=== PATIENT | male | born 1950 | race Caucasian/White ===

== ENCOUNTER 2019-10-16 08:38 | Emergency (ER) | payer OTHER, MEDICARE ==
[2019-10-16] MEDS ORDERED: MORPHINE 4 MG/ML SYR ONE ×2 (09:12→11:09)
[2019-10-16] MEDS ORDERED: ONDANSETRON 4 MG/2 ML VIAL ONE ×2 (09:12→11:14)
[2019-10-16 09:30] LABS: Absolute Lymphocytes (CBC) 1.4 K/uL (0.7-4.9); Basophils % 0.6 % (0-1.3); Hematocrit 38.4 % (39.6-49.0); Lymphocytes % 16.9 % (15.3-44.8); MPV 7.8 fL (7.6-11.3); RBC Red Blood Cell Count 4.23 M/uL (4.33-5.43)
--- NOTE | 2019-10-16 10:22 | RAD REPORT ---
EXAM DESCRIPTION: US - Scrotum Testicles - 10/16/2019 9:27 am CLINICAL HISTORY: Testicular pain COMPARISON: None FINDINGS: Right testicle measures 4.2 x 2.7 x 2.9 centimeters. Echotexture is homogeneous. Normal bl ood flow Left testicle measures 4.6 x 2.6 x 2.4 centimeters. Echotexture is homogeneous. Normal blood flow The epididymides are normal in size and echotexture. Normal blood flow is seen. 5 millimeter right sp ermatocele Small bilateral hydroceles IMPRESSION: Small bilateral hydroceles 5 millimeter right spermatocele
--- NOTE | 2019-10-16 10:25 | RAD REPORT ---
EXAM DESCRIPTION: CT - Stone Protocol - 10/16/2019 9:58 am CLINICAL HISTORY: Flank pain. Right groin, RLQ pain COMPARISON: No comparisons TECHNIQUE: Axial images were obtained without oral or IV contrast. Lack of contrast limits solid org an and vascular assessment. The [id number] spans the entirety of the system partially obscuring uppermost abdomen and lung bases. Coronal reformatted images were obtained and reviewed. All CT scans are performed using dose optimization technique as appropriate and may include automated exposure control or mA/KV adjustment according to patient size. FINDINGS: The lower lung alfred are clear. Imaged portions of the liver and spleen show no suspicious findings on non-contrast imaging. The panc reas and adrenal glands are normal. No pathologic lymphadenopathy in the abdomen or pelvis. 9 mm stone is present in the inferior calyx of the right kidney. Punctate calculus also suspected in the inferior calyx left kidney. No hydronephrosis. No bowel obstruction, free air, free fluid or abscess. Normal appendix noted.Mild sigmoid diverticulo sis coli. A large infrarenal abdominal aortic aneurysm is present measuring 10 cm in transverse dimension and 1 2 cm in length. 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 No significant bony abnormality. IMPRESSION: Large infrarenal abdominal aortic aneurysm measuring 10 cm. 9 mm inferior right renal stone without hydronephrosis.
--- NOTE | 2019-10-16 11:07 | EDPHYS ---
Physician Documentation [facility] Name: Cody Glover Jr Age: 68 yrs Sex: Male : 1950 Arrival Date: 10/16/2019 Time: 08:42 Bed 7 Private MD: Jorge Luis Galicia ED Physician King Zamudio HPI: 10/16 09:04 This 68 yrs old Male presents to ER via Ambulatory with complaints of Groin kdr Pain, Testicular Pain. 09:04 The patient presents with scrotal pain, of the right side, without swelling, without kdr erythema. Onset: The symptoms/episode began/occurred The patient began to have pain on Tuesday night and has been intermittent since. It was particularly bad on Tuesday night and then better on Tuesday. Then worse again on Tuesday night. He currently describes the pain at about an "8.". Modifying factors: The symptoms are alleviated by nothing, the symptoms are aggravated by movement. Associated signs and symptoms: Pertinent positives: abdominal pain, nausea, Pertinent negatives: constipation, diarrhea, dysuria, vomiting. Severity of symptoms: At their worst the symptoms were incapacitating, yesterday, in the emergency department the symptoms have improved, mildly. The patient has not experienced similar symptoms in the past. The patient has been recently seen by a physician: the patient's primary care provider, Was recently diagnosed with the flu and was given abx and Tamiflu. Historical: - Allergies: 08:54 No Known Allergies; iw - Home Meds: 08:54 telmisartan-hydrochlorothiazid 50-12.5 mg oral tab once daily [Active]; simvastatin 5 iw mg Oral tab 1 tab once daily [Active]; - PMHx: 08:54 Hypertension; Hyperlipidemia; iw - PSHx: 08:54 None; iw - Immunization history:: Adult Immunizations up to date. - Social history:: Smoking status: Patient uses tobacco products. - Ebola Screening: : Patient negative for fever greater than or equal to 101.5 degrees Fahrenheit, and additional compatible Ebola Virus Disease symptoms Patient denies exposure to infectious person Patient denies travel to an Ebola-affected area in the 21 days before illness onset No symptoms or risks identified at this time. ROS: 09:04 Constitutional: Negative for fever, chills, and weight loss, Eyes: Negative for injury, kdr pain, redness, and discharge, ENT: Negative for injury, pain, and discharge, Neck: Negative for injury, pain, and swelling, Cardiovascular: Negative for chest pain, palpitations, and edema, Respiratory: Negative for shortness of breath, cough, wheezing, and pleuritic chest pain, Back: Negative for injury and pain, MS/Extremity: Negative for injury and deformity, Skin: Negative for injury, rash, and discoloration, Neuro: Negative for headache, weakness, numbness, tingling, and seizure activity. Psych: Negative for depression, anxiety, suicide ideation, homicidal ideation, and hallucinations, Allergy/Immunology: Negative for hives, rash, and allergies, Endocrine: Negative for neck swelling, polydipsia, polyuria, polyphagia, and marked weight changes, Hematologic/Lymphatic: Negative for swollen nodes, abnormal bleeding, and unusual bruising. 09:04 Abdomen/GI: Positive for abdominal pain, nausea, of the right lower quadrant, Negative for vomiting, diarrhea, constipation, abdominal distension, anorexia, dysphagia, hematemesis, black/tarry stool, rectal pain, rectal bleeding. Exam: 09:04 Constitutional: This is a well developed, well nourished patient who is awake, alert, kdr and in no acute distress. Head/Face: Normocephalic, atraumatic. Eyes: Pupils equal round and reactive to light, extra-ocular motions intact. Lids and lashes normal. Conjunctiva and sclera are non-icteric and not injected. Cornea within normal limits. Periorbital areas with no swelling, redness, or edema. Neck: Trachea midline, no thyromegaly or masses palpated, and no cervical lymphadenopathy. Supple, full range of motion without nuchal rigidity, or vertebral point tenderness. No Meningismus. Chest/axilla: Normal chest wall appearance and motion. Nontender with no deformity. No lesions are appreciated. Cardiovascular: Regular rate and rhythm with a normal S1 and S2. No gallops, murmurs, or rubs. Normal PMI, no JVD. No pulse deficits. Respiratory: Lungs have equal breath sounds bilaterally, clear to auscultation and percussion. No rales, rhonchi or wheezes noted. No increased work of breathing, no retractions or nasal flaring. Back: No spinal tenderness. No costovertebral tenderness. Full range of motion. Skin: Warm, dry with normal turgor. Normal color with no rashes, no lesions, and no evidence of cellulitis. MS/ Extremity: Pulses equal, no cyanosis. Neurovascular intact. Full, normal range of motion. Neuro: Awake and alert, GCS 15, oriented to person, place, time, and situation. Cranial nerves II-XII grossly intact. Motor strength 5/5 in all extremities. Sensory grossly intact. Cerebellar exam normal. Normal gait. Psych: Awake, alert, with orientation to person, place and time. Behavior, mood, and affect are within normal limits. 09:04 Abdomen/GI: Inspection: abdomen appears normal, obese Bowel sounds: active, diminished, in all quadrants, Palpation: soft, mild abdominal tenderness, in the right upper quadrant and right lower quadrant, mass, is not appreciated, rebound tenderness, is not appreciated, voluntary guarding, is not appreciated, involuntary guarding, is not appreciated. Vital Signs: 08:55 BP 128 / 92; Pulse 90; Resp 16; Temp 98.0; Pulse Ox 98% on R/A; Pain 8/10; iw 10:00 BP 132 / 94; Pulse 89; Resp 15; Pulse Ox 99% on R/A; hb 11:00 BP 131 / 96; Pulse 85; Resp 14; Pulse Ox 99% on R/A; Pain 8/10; hb 12:01 BP 131 / 92; Pulse 85; Resp 18; Pulse Ox 97% on R/A; mg2 12:08 Weight 88.9 kg; Height 5 ft. 7 in. (170.18 cm); hb 12:28 BP 132 / 87; Pulse 84; Resp 16; Pulse Ox 99% on R/A; Pain 4/10; hb 12:08 Body Mass Index 30.70 (88.90 kg, 170.18 cm) hb MDM: 09:04 Data reviewed: vital signs, nurses notes, lab test result(s), radiologic studies. kdr Counseling: I had a detailed discussion with the patient and/or guardian regarding: the historical points, exam findings, and any diagnostic results supporting the discharge/admit diagnosis, lab results, radiology results. 11:04 Patient medically screened. kdr 11:54 ED course: Still awaiting acceptance from [facility] - if no movement in the next few kdr minutes's, will attempt elsewhere. 10/16 09:04 Order name: CBC with Diff; Complete Time: 09:54 kdr 10/16 09:04 Order name: Chem 7; Complete Time: 09:54 kdr 10/16 09:04 Order name: Scrotum Testicles US; Complete Time: 10:55 kdr 10/16 09:04 Order name: CT Stone Protocol; Complete Time: 10:55 kdr 10/16 12:19 Order name: Urine Dipstick--Ancillary (enter results) bd 10/16 09:04 Order name: Urine Dipstick-Ancillary (obtain specimen); Complete Time: 10:39 kdr Administered Medications: 09:13 Drug: morphine 4 mg Route: IVP; Site: right antecubital; mg2 10:00 Follow up: Response: No adverse reaction hb 09:13 Drug: Zofran 4 mg Route: IVP; Site: right antecubital; mg2 10:00 Follow up: Response: No adverse reaction hb 11:09 Drug: morphine 4 mg Route: IVP; Site: right antecubital; hb 11:28 Follow up: Response: No adverse reaction; Pain is decreased hb Disposition: 10/16/19 11:04 Transfer ordered to [facility]. Diagnosis is Aortic aneurysm of unspecified site, without rupture - 10 cm. - Reason for transfer: Higher level of care. - Accepting physician is [facility]. - Condition is Serious. - Problem is new. - Symptoms have improved. Signatures: Dispatcher [employer] EDMS King Zamudio MD MD [facility] Wen Small RN RN Farhana Field RN RN Lucio Vela RN RN mg2 Corrections: (The following items were deleted from the chart) 12:39 11:04 10/16/2019 11:04 Transfer ordered to [facility]. Diagnosis is hb Aortic aneurysm of unspecified site, without rupture - 10 cm. Reason for transfer: Higher level of care. Accepting physician is [facility]. Condition is Serious. Problem is new. Symptoms have improved. kdr
--- NOTE | 2019-10-16 12:41 | ER ---
Nurse's Notes [facility] Name: Cody Glover Jr Age: 68 yrs Sex: Male : 1950 Arrival Date: 10/16/2019 Time: 08:42 Bed 7 Private MD: Jorge Luis Galicia Diagnosis: Aortic aneurysm of unspecified site, without rupture-10 cm Presentation: 10/16 08:52 Presenting complaint: Patient states: was doing yard work on Tuesday, felt pain in right iw groin/testicle, pain got better Tuesday then pain came back , also has RLQ pain and feels nauseous. Transition of care: patient was not received from another setting of care. Onset of symptoms was October 14, 2019. Risk Assessment: Do you want to hurt yourself or someone else? Patient reports no desire to harm self or others. Initial Sepsis Screen: Does the patient meet any 2 criteria? No. Patient's initial sepsis screen is negative. Does the patient have a suspected source of infection? No. Patient's initial sepsis screen is negative. Care prior to arrival: None. 08:52 Method Of Arrival: Ambulatory iw 08:52 Acuity: GENIE 3 iw 11:10 Acuity: GENIE 2 iw Historical: - Allergies: 08:54 No Known Allergies; iw - Home Meds: 08:54 telmisartan-hydrochlorothiazid 50-12.5 mg oral tab once daily [Active]; simvastatin 5 iw mg Oral tab 1 tab once daily [Active]; - PMHx: 08:54 Hypertension; Hyperlipidemia; iw - PSHx: 08:54 None; iw - Immunization history:: Adult Immunizations up to date. - Social history:: Smoking status: Patient uses tobacco products. - Ebola Screening: : Patient negative for fever greater than or equal to 101.5 degrees Fahrenheit, and additional compatible Ebola Virus Disease symptoms Patient denies exposure to infectious person Patient denies travel to an Ebola-affected area in the 21 days before illness onset No symptoms or risks identified at this time. Screenin:15 Abuse screen: Denies threats or abuse. Denies injuries from another. Nutritional mg2 screening: No deficits noted. Tuberculosis screening: No symptoms or risk factors identified. Fall Risk IV access (20 points). Assessment: 07:08 Reassessment: US at bedside. hb 09:14 General: Appears in no apparent distress. comfortable, Behavior is calm, cooperative. mg2 Pain: Complains of pain in testicle Pain does not radiate. Pain currently is 8 out of 10 on a pain scale. Quality of pain is described as aching, Pain began gradually, 2-3 days ago. Is intermittent. Neuro: Level of Consciousness is awake, alert, obeys commands, Oriented to person, place, time, situation. Cardiovascular: Capillary refill < 3 seconds Patient's skin is warm and dry. Respiratory: Airway is patent Respiratory effort is even, unlabored, Respiratory pattern is regular, symmetrical. GI: No signs and/or symptoms were reported involving the gastrointestinal system. : Reports pain testicle. EENT: No signs and/or symptoms were reported regarding the EENT system. Derm: Skin is intact, is healthy with good turgor, Skin is pink, warm \T\ dry. normal. Musculoskeletal: Circulation, motion, and sensation intact. Capillary refill < 3 seconds. 10:02 Reassessment: Patient appears in no apparent distress at this time. Patient and/or hb family updated on plan of care and expected duration. Pain level reassessed. Patient is alert, oriented x 3, equal unlabored respirations, skin warm/dry/pink. 10:30 Reassessment: Patient appears in no apparent distress at this time. Patient and/or hb family updated on plan of care and expected duration. Pain level reassessed. Patient is alert, oriented x 3, equal unlabored respirations, skin warm/dry/pink. 11:15 Reassessment: Pt reports testicular pain 8/10. Dr. Zamudio notified, repeat morphine hb administered as ordered. 11:21 Reassessment: patient is aware that he is going to be transferred to other facility. mg2 12:01 Reassessment: Patient appears in no apparent distress at this time. Patient and/or mg2 family updated on plan of care and expected duration. Pain level reassessed. Patient is alert, oriented x 3, equal unlabored respirations, skin warm/dry/pink. Vital Signs: 08:55 BP 128 / 92; Pulse 90; Resp 16; Temp 98.0; Pulse Ox 98% on R/A; Pain 8/10; iw 10:00 BP 132 / 94; Pulse 89; Resp 15; Pulse Ox 99% on R/A; hb 11:00 BP 131 / 96; Pulse 85; Resp 14; Pulse Ox 99% on R/A; Pain 8/10; hb 12:01 BP 131 / 92; Pulse 85; Resp 18; Pulse Ox 97% on R/A; mg2 12:08 Weight 88.9 kg; Height 5 ft. 7 in. (170.18 cm); hb 12:28 BP 132 / 87; Pulse 84; Resp 16; Pulse Ox 99% on R/A; Pain 4/10; hb 12:08 Body Mass Index 30.70 (88.90 kg, 170.18 cm) hb ED Course: 08:42 Patient arrived in ED. as 08:43 Jorge Luis Galicia MD is Private Physician. as 08:45 King Zamudio MD is Attending Physician. kdr 08:53 Triage completed. iw 08:55 Arm band placed on. iw 09:13 Lucio Vela, SHERRI is Primary Nurse. mg2 09:15 Patient has correct armband on for positive identification. Pulse ox on. NIBP on. Door mg2 closed. Warm blanket given. 09:15 No provider procedures requiring assistance completed. Inserted saline lock: 20 gauge mg2 in right antecubital area, using aseptic technique. Blood collected. 09:18 Scrotum Testicles US In Process Unspecified. EDMS 10:03 CT Stone Protocol In Process Unspecified. EDMS 11:17 Inserted saline lock: 20 gauge in left antecubital area, using aseptic technique. Blood mg2 collected. 12:28 Patient transferred, IV remains in place. hb Administered Medications: 09:13 Drug: morphine 4 mg Route: IVP; Site: right antecubital; mg2 10:00 Follow up: Response: No adverse reaction hb 09:13 Drug: Zofran 4 mg Route: IVP; Site: right antecubital; mg2 10:00 Follow up: Response: No adverse reaction hb 11:09 Drug: morphine 4 mg Route: IVP; Site: right antecubital; hb 11:28 Follow up: Response: No adverse reaction; Pain is decreased hb Outcome: 11:04 ER care complete, transfer ordered by . kdr 12:28 Transferred by helicopter to [facility]. hb 12:28 Condition: stable 12:28 Instructed on the need for transfer, Demonstrated understanding of instructions. 12:39 Patient left the ED. hb Signatures: Dispatcher [employer] EDNC King Zamudio MD MD [facility] [address] Lisandra Bae as Wen Small RN RN Farhana Field, SHERRI RN Lucio Vela RN RN mg2
[2019-10-16 12:47] VITALS: TEMP 98
[2019-10-16 12:53] VITALS: BP 132/87; O2SAT 99
[2019-10-16 14:02] LABS: Urine Blood NEGATIVE (NEG); Urine Glucose NEGATIVE (NEG); Urine Protein NEGATIVE (NEG); Urine Specific Gravity 1.025 (1.005-1.030); Urine pH 5.5 (5.0-7.0)
== END 2019-10-16 12:39 | disposition short-term general hospital (02) ==
LOC: ER 08:38
DX: I71.9 Aortic aneurysm of unspecified site, without rupture (principal); I10 Essential (primary) hypertension; E78.5 Hyperlipidemia, unspecified; Z72.0 Tobacco use
CPT/HCPCS: 85025; 80048; 36415; 81003; 76377; 74176; 76870; 96375; 96374; 99285; J2405 ×2

== ENCOUNTER 2019-10-26 10:15 | Emergency (ER) | payer OTHER, MEDICARE ==
[2019-10-26 11:35] LABS: Absolute Lymphocytes (CBC) 1.5 K/uL (0.7-4.9); Basophils % 1.1 % (0-1.3); Hematocrit 28.5 % (39.6-49.0); Lymphocytes % 18.2 % (15.3-44.8); RBC Red Blood Cell Count 3.15 M/uL (4.33-5.43)
[2019-10-26] MEDS ORDERED: ONDANSETRON 4 MG/2 ML VIAL ONE (11:35)
[2019-10-26] MEDS ORDERED: NA CHLORIDE 0.9% 1,000 ML ONE (11:35)
[2019-10-26] MEDS ORDERED: MORPHINE 2 MG/ML SYR ONE ×2 (11:35→13:51)
[2019-10-26 11:40] LABS: Protime INR 1.11
[2019-10-26 12:14] LABS: ALT/SGPT 80 U/L (12-78); AST/SGOT 29 U/L (15-37); Albumin 3.1 g/dL (3.4-5.0); Alkaline Phosphatase 117 U/L (45-117); BUN Blood Urea Nitrogen 16 mg/dL (7-18); Bicarbonate 28 mmol/L (21-32); Bilirubin Direct 0.2 mg/dL (0-0.2); Bilirubin Total 0.7 mg/dL (0.2-1.0); Glucose Level 85 mg/dL (74-106); Lipase 282 U/L (73-393); Magnesium 1.9 mg/dL (1.8-2.4); NT PRO-BNP 746 pg/mL (<125); Potassium 4.5 mmol/L (3.5-5.1); Protein, Total 8.6 g/dL (6.4-8.2); Sodium Level 133 mmol/L (136-145); Troponin (Emerg Dept Use Only) < 0.02 ng/mL (0.0-0.045)
--- NOTE | 2019-10-26 12:18 | RAD REPORT ---
EXAM DESCRIPTION: RAD - Chest Single View - 10/26/2019 12:08 pm CLINICAL HISTORY: Cough, abdominal pain, recent stenting of abdominal aortic aneurysms COMPARISON: February 2015 TECHNIQUE: AP portable chest image was obtained 1144 hours . FINDINGS: Lung volumes are low. No peripheral mass or consolidation. No diffuse pulmonary edema, presley lure or volume overload. When adjusting for the shallow inspiration, interstitial pattern is not sign ificantly different. Heart and vasculature are normal. No measurable pleural effusion and no pneumothorax. No acute bony abnormality seen. No acute aortic findings suspected. IMPRESSION: No acute cardiopulmonary process.
[2019-10-26 12:20] LABS: Urine Blood TRACE (NEG); Urine Glucose NEGATIVE (NEG); Urine Protein 1+ (NEG)
--- NOTE | 2019-10-26 13:16 | RAD REPORT ---
EXAM DESCRIPTION: CT - Angio Aorta For Dissection - 10/26/2019 12:53 pm CLINICAL HISTORY: ABDOMINAL DISTENTION, abdominal pain, history of aortoiliac aneurysms with recent endovascular stent graft repair COMPARISON: Noncontrast CT abdomen and pelvis imaging October 16, 2019 in TECHNIQUE: Dynamically enhanced 3 mm thick images of the chest, abdomen, and upper pelvis were obtai laverne during administration of approximately 150mL Isovue 370 IV contrast. Sagittal and coronal reconst ruction images were generated using MIP and reviewed. Exam utilizes a protocol to evaluate entire cou rse of the aorta. All CT scans are performed using dose optimization technique as appropriate and may include automated exposure control or mA/KV adjustment according to patient size. FINDINGS: Thoracic aorta shows no acute findings. Pulmonary arteries enhance normally. No cardiomegaly, pericardial thickening or pericardial effusion. Minimal posterior right base atelectasis present. A few very small patchy areas of airspace opacifica tion scattered in the right lung field could be minimal infiltrate or atelectasis change. These are m inimal findings. No pleural thickening, pleural effusion or pneumothorax. No abnormal mediastinal or hilar mass or lymphadenopathy seen. No chest wall mass or abnormal axillar y lymphadenopathy. A very large abdominal aortic aneurysm again identified measuring 9.5 cm AP x 10.0 cm TR. No overall change in the sycuan aortic size. 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 Since the prior study aortoiliac endovascular stent grafts have been placed. Aortic graft extends fro m the level of the celiac artery into the left common iliac artery and extended has additional endova scular graft into the right external iliac artery. Coils are in place at the neck of the right iliac artery aneurysm. The proximal few cm of the right internal iliac artery appears to be occluded. Dista l branches are opacified by contrast. There is no contrast extending into the iliac artery aneurysm. No endoleak identified in the aortic p ortion of the graft. Celiac and superior mesenteric arteries enhance normally. The left renal artery enhances normally. Th ere is normal perfusion pattern to the left kidney. Substantially reduced perfusion is present approx imately 60% of the right kidney. This appears to be a vascular distribution and not a pyelonephritis related perfusion abnormality. The contrast opacified right renal artery is much smaller than the lef t. It is possible the patient has 2 right renal arteries 1 of which is occluded. The prior study was noncontrast. The liver, spleen, pancreas, gallbladder, biliary tree and adrenal glands show no suspicious findings . No acute bowel finding. No suspicion for bowel ischemia. Urinary bladder is unremarkable. No mass or abnormal lymphadenopathy. No free air, free fluid or inflammatory stranding. No urinary bladder ab normality. 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 Since the prior examination patient has undergone endovascular stent grafting of a very large 10 cent imeter abdominal aortic aneurysm and a 5 centimeter right iliac artery aneurysm. No evidence for endo leak and the sycuan aorta has not changed in diameter. Right iliac artery aneurysm has been thrombosed. Endovascular stenting extends into the right externa l iliac artery. No endoleak. Occlusion of the proximal few cm of the right internal iliac artery. No evidence for bowel ischemia. No other significant findings on chest, abdomen and upper pelvis examination.
--- NOTE | 2019-10-26 13:44 | ER ---
Nurse's Notes 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 I was 4 cm and the other one was 10 cm. I was life flighted to [facility] in [place] and that afternoon they did the surgery and stented both of them. I was in the hospital until Tuesday and I was released. I've been taking 50 mg of Tramadol and my routine blood pressure meds. The last couple days the pain started to go down, Tuesday it started hurting again, and its gradually getting worse. Starting yesterday the pain just wont go away. I called [facility] and they recommended me come to the emergency room". Transition of care: patient was not received from another setting of care. Onset of symptoms was 2019. Risk Assessment: Do you want to hurt yourself or someone else? Patient reports no desire to harm self or others. Initial Sepsis Screen: Does the patient meet any 2 criteria? No. Patient's initial sepsis screen is negative. Does the patient have a suspected source of infection? No. Patient's initial sepsis screen is negative. Care prior to arrival: None. 10:36 Method Of Arrival: Ambulatory aj1 10:36 Acuity: GENIE 3 aj1 Triage Assessment: 10:41 General: Appears in no apparent distress. uncomfortable, Behavior is calm, cooperative, aj1 appropriate for age. Pain: Complains of pain in abdomen and pelvis Pain currently is 4 out of 10 on a pain scale. Neuro: Level of Consciousness is awake, alert, obeys commands. Cardiovascular: Patient's skin is warm and dry. Respiratory: Airway is patent Respiratory effort is even, unlabored, Respiratory pattern is regular, symmetrical. GI: Reports lower abdominal pain, upper abdominal pain. Historical: - Allergies: 10:41 No Known Allergies; aj1 - Home Meds: 10:41 tramadol 50 mg oral tab as needed [Active]; amlodipine 10 mg oral tab once daily aj1 [Active]; simvastatin 5 mg oral tab once daily [Active]; - PMHx: 10:41 Hyperlipidemia; Hypertension; aj1 - PSHx: 10:41 aortic aneursyms repair; aj1 - Immunization history:: Flu vaccine is up to date. - Social history:: Smoking status: Patient/guardian denies using tobacco. - Ebola Screening: : Patient denies travel to an Ebola-affected area in the 21 days before illness onset. - Family history:: not pertinent. Screenin:30 Abuse screen: Denies threats or abuse. Denies injuries from another. Nutritional iw screening: No deficits noted. Tuberculosis screening: No symptoms or risk factors identified. Fall Risk IV access (20 points). Assessment: 11:15 General: Appears in no apparent distress. Behavior is calm, cooperative. Pain: iw Complains of pain in right lower quadrant Pain radiates to right femoral area Quality of pain is described as throbbing, Is intermittent. Neuro: Level of Consciousness is awake, alert, obeys commands, Oriented to person, place, time, situation, Moves all extremities. Full function. Cardiovascular: Denies chest pain, lightheadedness, shortness of breath, Patient's skin is warm and dry. Pulses are palpable in right posterior tibial artery, right dorsalis pedis artery, left posterior tibial artery and left dorsalis pedis artery Rhythm is regular. Respiratory: Airway is patent Respiratory effort is even, unlabored. GI: Bowel sounds present X 4 quads. Abd is soft and non tender X 4 quads. Derm: Skin is intact, is healthy with good turgor. Musculoskeletal: Range of motion: intact in all extremities. 13:17 Reassessment: Patient appears in no apparent distress at this time. Patient and/or iw family updated on plan of care and expected duration. Pain level reassessed. Patient is alert, oriented x 3, equal unlabored respirations, skin warm/dry/pink. pt states pain has improved but still is having pulsating throbbing intermittently. 14:45 Reassessment: Patient appears in no apparent distress at this time. pt states pain is iw increasing, Dr. Gaona notified, pt medicated with morphine 2 mg IVP. 15:45 Reassessment: pt requesting pain medication prior to transfer, Dr. Gaona notified. iw Vital Signs: 10:41 BP 141 / 79; Pulse 72; Resp 18; Temp 98.1; Pulse Ox 97% on R/A; Weight 89.81 kg (R); aj1 Height 5 ft. 7 in. (170.18 cm) (R); Pain 4/10; 13:17 BP 142 / 74; Pulse 70; Resp 16; Pulse Ox 99% on R/A; Pain 4/10; iw 14:38 BP 151 / 77; Pulse 61; Resp 16; Pulse Ox 100% on R/A; Pain 2/10; iw 10:41 Body Mass Index 31.01 (89.81 kg, 170.18 cm) aj1 ED Course: 10:19 Patient arrived in ED. mr 10:19 Jorge Luis Galicia MD is Private Physician. mr 10:39 Triage completed. aj1 10:41 Arm band placed on Patient placed in an exam room. aj1 10:45 Wen Small, RN is Primary Nurse. iw 10:56 Sidney Gaona MD is Attending Physician. janelle 11:16 Initial lab(s) drawn, by me, sent to lab. EKG done, by in tube conversion technician. reviewed by Sidney Gaona MD. Inserted saline lock: 20 gauge in left antecubital area, using aseptic technique. Blood collected. 11:17 Patient has correct armband on for positive identification. Placed in gown. Bed in low mh5 position. Call light in reach. Side rails up X 1. Adult w/ patient. Warm blanket given. ekg monitor on. Pulse ox on. NIBP on. 11:17 Lipase Sent. mh5 11:18 Basic Metabolic Panel Sent. 5 11:18 CBC with Diff Sent. 5 11:18 LFT's Sent. 5 11:18 Magnesium Sent. 5 11:18 NT PRO-BNP Sent. 5 11:18 PT-INR Sent. 5 11:18 Troponin (emerg Dept Use Only) Sent. mh5 12:09 XRAY Chest (1 view) In Process Unspecified. EDMS 12:53 CT Aorta for Dissection In Process Unspecified. EDMS 13:[address] Gaona with Shellsie Friend from the [place] [id number] center. 13:32 connected the [employer] covering for the thoracic surgeon guard immigration for [address] Gaona for patient transfer consultation. 14:08 administrative approval given by Lisa French/ patient has been accepted to [address] C[address]/ Dr. Finley has accepted the patient in transfer/ report to be called to [phone]. 15:50 No provider procedures requiring assistance completed. Patient transferred, IV remains iw in place. Administered Medications: 12:11 Drug: NS 0.9% 1000 ml Route: IV; Rate: 125 ml/hr; Site: left antecubital; iw 12:11 Drug: morphine 2 mg Route: IVP; Site: left antecubital; iw 12:12 Drug: Zofran 4 mg Route: IVP; Site: left antecubital; iw 13:00 Follow up: Response: No adverse reaction iw 14:37 Drug: morphine 2 mg Route: IVP; Site: right antecubital; iw 15:10 Follow up: Response: No adverse reaction; Pain is decreased iw Outcome: 13:43 ER care complete, transfer ordered by MD. luis 15:58 Transferred by ground EMS to [facility], Transfer form completed. iw X-rays sent w/ patient. 15:58 Condition: good 15:58 Discharge instructions given to patient, family, Instructed on the need for transfer, Demonstrated understanding of instructions. 15:59 Patient left the ED. iw Signatures: Dispatcher [employer] Lucia Oates RN RN aj1 Anderson, Corey, MD MD cha Rivera, Mary mr Williams, Irene, RN RN iw Martinez, Maria [facility] [place] [address] Corrections: (The following items were deleted from the chart) 20:05 14:30 Reassessment: pt requesting pain medication prior to transfer, Dr. Gaona iw notified iw
--- NOTE | 2019-10-26 13:44 | EDPHYS ---
Physician Documentation [facility] Name: Cody Glover Jr Age: 68 yrs Sex: Male : 1950 Arrival Date: 10/26/2019 Time: 10:19 Bed 16 Private MD: Jorge Luis Galicia ED Physician Sidney Gaona HPI: 10/26 11:44 This 68 yrs old Male presents to ER via Ambulatory with complaints of janelle Abdominal Pain. 11:44 The patient presents with abdominal pain in the upper abdomen, in the lower abdomen, janelle abdominal distention in the upper abdomen, in the lower abdomen. Onset: The symptoms/episode began/occurred 2 day(s) ago. The patient presents with pain that is acute, with no known mechanism of injury. The symptoms are located in the low back, lumbar area. Onset: The symptoms/episode began/occurred 2 day(s) ago. The pain does not radiate. Associated signs and symptoms: The patient has no apparent associated signs or symptoms. Severity of symptoms: At their worst the symptoms were. Historical: - Allergies: 10:41 No Known Allergies; aj1 - Home Meds: 10:41 tramadol 50 mg oral tab as needed [Active]; amlodipine 10 mg oral tab once daily aj1 [Active]; simvastatin 5 mg oral tab once daily [Active]; - PMHx: 10:41 Hyperlipidemia; Hypertension; aj1 - PSHx: 10:41 aortic aneursyms repair; aj1 - Immunization history:: Flu vaccine is up to date. - Social history:: Smoking status: Patient/guardian denies using tobacco. - Ebola Screening: : Patient denies travel to an Ebola-affected area in the 21 days before illness onset. - Family history:: not pertinent. ROS: 11:44 Constitutional: Negative for fever, chills, and weight loss, Eyes: Negative for injury, janelle pain, redness, and discharge, ENT: Negative for injury, pain, and discharge, Neck: Negative for injury, pain, and swelling, Cardiovascular: Negative for chest pain, palpitations, and edema, Respiratory: Negative for shortness of breath, cough, wheezing, and pleuritic chest pain, Back: Negative for injury and pain, : Negative for injury, bleeding, discharge, and swelling, MS/Extremity: Negative for injury and deformity, Skin: Negative for injury, rash, and discoloration, Neuro: Negative for headache, weakness, numbness, tingling, and seizure, Psych: Negative for depression, anxiety, suicide ideation, homicidal ideation, and hallucinations, Allergy/Immunology: Negative for hives, rash, and allergies, Endocrine: Negative for neck swelling, polydipsia, polyuria, polyphagia, and marked weight changes, Hematologic/Lymphatic: Negative for swollen nodes, abnormal bleeding, and unusual bruising. 11:44 Abdomen/GI: Positive for abdominal pain, of the posterior aspect of left lateral abdomen, posterior aspect of right lateral abdomen, right upper quadrant, left upper quadrant, right lower quadrant and left lower quadrant. Exam: 11:44 Constitutional: This is a well developed, well nourished patient who is awake, alert, janelle and in no acute distress. Head/Face: Normocephalic, atraumatic. Eyes: Pupils equal round and reactive to light, extra-ocular motions intact. Lids and lashes normal. Conjunctiva and sclera are non-icteric and not injected. Cornea within normal limits. Periorbital areas with no swelling, redness, or edema. ENT: Nares patent. No nasal discharge, no septal abnormalities noted. Tympanic membranes are normal and external auditory canals are clear. Oropharynx with no redness, swelling, or masses, exudates, or evidence of obstruction, uvula midline. Mucous membranes moist. Neck: Trachea midline, no thyromegaly or masses palpated, and no cervical lymphadenopathy. Supple, full range of motion without nuchal rigidity, or vertebral point tenderness. No Meningismus. Chest/axilla: Normal chest wall appearance and motion. Nontender with no deformity. No lesions are appreciated. Cardiovascular: Regular rate and rhythm with a normal S1 and S2. No gallops, murmurs, or rubs. Normal PMI, no JVD. No pulse deficits. Respiratory: Lungs have equal breath sounds bilaterally, clear to auscultation and percussion. No rales, rhonchi or wheezes noted. No increased work of breathing, no retractions or nasal flaring. Back: No spinal tenderness. No costovertebral tenderness. Full range of motion. Male : Normal genitalia with no discharge or lesions. Skin: Warm, dry with normal turgor. Normal color with no rashes, no lesions, and no evidence of cellulitis. MS/ Extremity: Pulses equal, no cyanosis. Neurovascular intact. Full, normal range of motion. Neuro: Awake and alert, GCS 15, oriented to person, place, time, and situation. Cranial nerves II-XII grossly intact. Motor strength 5/5 in all extremities. Sensory grossly intact. Cerebellar exam normal. Normal gait. Psych: Awake, alert, with orientation to person, place and time. Behavior, mood, and affect are within normal limits. 11:44 Abdomen/GI: Inspection: abdomen appears normal, Bowel sounds: normal, Palpation: mild abdominal tenderness, in the suprapubic area, right lower quadrant and left lower quadrant. Vital Signs: 10:41 BP 141 / 79; Pulse 72; Resp 18; Temp 98.1; Pulse Ox 97% on R/A; Weight 89.81 kg (R); aj1 Height 5 ft. 7 in. (170.18 cm) (R); Pain 4/10; 13:17 BP 142 / 74; Pulse 70; Resp 16; Pulse Ox 99% on R/A; Pain 4/10; iw 14:38 BP 151 / 77; Pulse 61; Resp 16; Pulse Ox 100% on R/A; Pain 2/10; iw 10:41 Body Mass Index 31.01 (89.81 kg, 170.18 cm) [facility] MDM: 10:56 Patient medically screened. [facility] 11:46 Data reviewed: vital signs, nurses notes, lab test result(s), EKG, radiologic studies, [facility] CT scan, plain films. 10/26 11:07 Order name: Basic Metabolic Panel; Complete Time: 13:03 [facility] 10/26 11:07 Order name: CBC with Diff; Complete Time: 11:44 [facility] 10/26 11:07 Order name: LFT's; Complete Time: 13:03 [facility] 10/26 11:07 Order name: Magnesium; Complete Time: 13:03 [facility] 10/26 11:07 Order name: NT PRO-BNP; Complete Time: 13:03 [facility] 10/26 11:07 Order name: PT-INR; Complete Time: 13:03 [facility] 10/26 11:07 Order name: Troponin (emerg Dept Use Only); Complete Time: 13:03 [facility] 10/26 11:07 Order name: XRAY Chest (1 view); Complete Time: 13:03 [facility] 10/26 11:07 Order name: CT Aorta for Dissection; Complete Time: 13:33 [facility] 10/26 11:07 Order name: Urine Culture [facility] 10/26 11:07 Order name: Lipase; Complete Time: 13:03 [facility] 10/26 12:06 Order name: Urine Dipstick--Ancillary (enter results); Complete Time: 13:03 [facility] 10/26 11:07 Order name: EKG; Complete Time: 11:08 [facility] 10/26 11:07 Order name: Cardiac monitoring; Complete Time: 11:18 [facility] 10/26 11:07 Order name: EKG - Nurse/Tech; Complete Time: 11:18 [facility] 10/26 11:07 Order name: IV Saline Lock; Complete Time: 11:18 [facility] 10/26 11:07 Order name: Labs collected and sent; Complete Time: 11:18 [facility] 10/26 11:07 Order name: O2 Per Protocol; Complete Time: 12:46 [facility] 10/26 11:07 Order name: O2 Sat Monitoring; Complete Time: 12:46 [facility] 10/26 11:07 Order name: Urine Dipstick-Ancillary (obtain specimen); Complete Time: 12:37 [facility] Administered Medications: 12:11 Drug: NS 0.9% 1000 ml Route: IV; Rate: 125 ml/hr; Site: left antecubital; iw 12:11 Drug: morphine 2 mg Route: IVP; Site: left antecubital; iw 12:12 Drug: Zofran 4 mg Route: IVP; Site: left antecubital; iw 13:00 Follow up: Response: No adverse reaction iw 14:37 Drug: morphine 2 mg Route: IVP; Site: right antecubital; iw 15:10 Follow up: Response: No adverse reaction; Pain is decreased iw Disposition: 10/26/19 13:43 Transfer ordered to [facility]. Diagnosis are Abdominal tenderness, Abdominal aortic aneurysm, without rupture - with endograft, Ischemia and infarction of kidney - right , 60% ischemia, Dysuria - , frequency. - Reason for transfer: Higher level of care. - Accepting physician is to dr lopez. - Condition is Fair. - Problem is new. - Symptoms have improved. Signatures: Dispatcher [employer] Lucia Oates RN RN aj1 Jimenez, Sidney, MD MD janelle Geovanny, Wen, RN RN iw Corrections: (The following items were deleted from the chart) 14:34 13:43 10/26/2019 13:43 Transfer ordered to [facility]. Diagnosis is janelle Abdominal tenderness; Abdominal aortic aneurysm, without rupture - with endograft; Ischemia and infarction of kidney - right , 60% ischemia. Reason for transfer: Higher level of care. Accepting physician is to dr lopez. Condition is Fair. Problem is new. Symptoms have improved. janelle 15:59 14:34 10/26/2019 13:43 Transfer ordered to [facility]. Diagnosis is iw Abdominal tenderness; Abdominal aortic aneurysm, without rupture - with endograft; Ischemia and infarction of kidney - right , 60% ischemia; Dysuria - , frequency. Reason for transfer: Higher level of care. Accepting physician is to dr lopez. Condition is Fair. Problem is new. Symptoms have improved. janelle
[2019-10-26] MEDS ORDERED: MORPHINE 4 MG/ML SYR ONE (15:53)
[2019-10-26 16:25] VITALS: TEMP 98.1
[2019-10-26 16:32] VITALS: BP 151/77; O2SAT 100
--- NOTE | 2019-10-27 06:37 | EKG ---
Test Date: 2019-10-26 Test Time: 11:18:23 Ultrasound Tech: JENNIFER MEASUREMENT RESULTS: Intervals: Rate: 68 MS: 180 QRSD: 86 QT: 392 QTc: 416 [place]: P: -8 MS: 180 QRS: 45 T: 66 INTERPRETIVE STATEMENTS: Normal sinus rhythm Normal ECG No previous ECG available for comparison Electronically Signed On 10-27-19 06:36:03 WELT INSOLE CHANNELER by Allan Kim
== END 2019-10-26 15:59 | disposition short-term general hospital (02) ==
LOC: ER 10:15
DX: I71.4 Abdominal aortic aneurysm, without rupture (principal); N28.0 Ischemia and infarction of kidney; R30.0 Dysuria; I10 Essential (primary) hypertension; E78.5 Hyperlipidemia, unspecified
CPT/HCPCS: 93005; 87088; 85025; 80048; 36415; 83735; 85610; 80076; 81003; 84484; 83690; 83880; 71275; 74175; 71045; 96375; 96374; 99285; Q9967; J2270 ×2; J7030; J2405; 87086

== ENCOUNTER 2022-12-09 23:40 | Emergency (ER) | payer OTHER ==
[2022-12-10 00:50] LABS: Urine Blood 2+ (Negative); Urine Glucose Negative (Negative); Urine Protein Negative (Negative); Urine Specific Gravity 1.025 (1.005-1.030); Urine pH 5.5 (5.0-7.0)
[2022-12-10 00:53] LABS: Absolute Lymphocytes (CBC) 1.9 K/uL (0.7-4.9); Lymphocytes % 25.5 % (15.3-44.8); MCV 88.1 fL (80-100); MPV 6.9 fL (7.6-11.3); RBC Red Blood Cell Count 3.86 M/uL (4.33-5.43)
[2022-12-10] MEDS ORDERED: ONDANSETRON 4 MG/2 ML VIAL ONE ×3 (00:55→05:31)
[2022-12-10] MEDS ORDERED: MORPHINE 4 MG/ML SYR ONE ×3 (00:55→05:30)
[2022-12-10 00:58] LABS: Urine Bacteria <20 /HPF (<20); Urine RBC 21-50 /HPF (None Seen)
[2022-12-10 01:22] LABS: Albumin 3.5 g/dL (3.4-5.0); Bilirubin Total 0.4 mg/dL (0.2-1.0); Potassium 4.1 mmol/L (3.5-5.1); Protein, Total 8.2 g/dL (6.4-8.2)
[2022-12-10] MEDS ORDERED: NA CHLORIDE 0.9% 1,000 ML ONE ×2 (01:47→03:01)
--- NOTE | 2022-12-10 03:50 | ER ---
Nurse's Notes [facility] Name: Cody Glover Jr Age: 72 yrs Sex: Male : 1950 Arrival Date: 12/09/2022 Time: 23:41 Bed 13 Private MD: Diagnosis: Calculus of ureter Presentation: 12/09 23:52 Chief complaint: Patient states: ""I have severe pain in my right side and back. I'm vc1 feeling nauseous. I passed a kidney stone about 9 months ago but they don't feel the same. I was just released for a re-stented Triple A on November 13 at [facility].". Coronavirus screen: Vaccine status: Patient reports receiving the 2nd dose of the covid vaccine. Plus 2 boosters; Moderna Client denies travel out of the [place] in the last 14 days. At this time, the client does not indicate any symptoms associated with coronavirus-19. Ebola Screen: Patient negative for fever greater than or equal to 101.5 degrees Fahrenheit, and additional compatible Ebola Virus Disease symptoms Patient denies exposure to infectious person. Patient denies travel to an Ebola-affected area in the 21 days before illness onset. No symptoms or risks identified at this time. Initial Sepsis Screen: Does the patient meet any 2 criteria? No. Patient's initial sepsis screen is negative. Does the patient have a suspected source of infection? No. Patient's initial sepsis screen is negative. Risk Assessment: Do you want to hurt yourself or someone else? Patient reports no desire to harm self or others. Onset of symptoms was December 09, 2022. 23:52 Method Of Arrival: Ambulatory vc1 23:52 Acuity: GENIE 3 vc1 Triage Assessment: 12/10 00:04 General: Appears in no apparent distress. uncomfortable, Behavior is calm, cooperative, vc1 appropriate for age. Pain: Complains of pain in anterior aspect of right lateral abdomen and posterior aspect of right lateral abdomen Pain does not radiate. Pain currently is 9 out of 10 on a pain scale. EENT: No deficits noted. No signs and/or symptoms were reported regarding the EENT system. Neuro: Level of Consciousness is awake, alert, obeys commands, Oriented to person, place, time, situation, Appropriate for age. Cardiovascular: No deficits noted. Respiratory: Airway is patent Respiratory effort is even, unlabored, Respiratory pattern is regular, symmetrical. GI: Reports nausea. : Reports pain in right flank(s), in lower back urinary frequency. Derm: No deficits noted. No signs and/or symptoms reported regarding the dermatologic system. Musculoskeletal: No deficits noted. No signs and/or symptoms reported regarding the musculoskeletal system. Historical: - Allergies: 12/09 23:59 No Known Allergies; vc1 - Home Meds: 23:59 ropinirole 2 mg oral tab 1 tab noon and bedtime [Active]; vc1 telmisartan-hydrochlorothiazid 40-12.5 mg oral tab 1 tab once daily [Active]; simvastatin 20 mg Oral tab 1 tab once daily [Active]; trazodone 50 mg Oral tab 1 tab once daily [Active]; pantoprazole 40 mg oral TbEC 1 tab once daily [Active]; sildenafil 100 mg oral tab 1 tab once daily [Active]; - PMHx: 23:59 Hyperlipidemia; Hypertension; Triple A; vc1 - PSHx: 23:59 Triple A repair; vc1 - Immunization history:: Client reports receiving the 2nd dose of the Covid vaccine. - Social history:: Smoking status: Patient denies any tobacco usage or history of. - Family history:: not pertinent. Screenin/03 01:08 [facility] ED Fall Risk Assessment (Adult) History of falling in the last 3 months, lg3 including since admission No falls in past 3 months (0 pts). Abuse screen: Denies threats or abuse. Denies injuries from another. Nutritional screening: No deficits noted. Tuberculosis screening: No symptoms or risk factors identified. Assessment: 01:08 General: Appears in no apparent distress. uncomfortable, Behavior is calm, cooperative. lg3 Pain: Complains of pain in posterior aspect of right lateral abdomen Pain radiates to abdomen Pain currently is 9 out of 10 on a pain scale. Neuro: No deficits noted. Ruth Agitation-Sedation Scale (RASS): 0 - Alert and Calm Level of Consciousness is awake, alert, obeys commands, Oriented to person, place, time, situation. Cardiovascular: No deficits noted. Denies chest pain, shortness of breath, Capillary refill < 3 seconds Clubbing of nail beds is absent JVD is absent Patient's skin is warm and dry. Respiratory: No deficits noted. Airway is patent Respiratory effort is even, unlabored, Respiratory pattern is regular, symmetrical. GI: Abdomen is round non-distended, Bowel sounds present X 4 quads. Abd is soft X 4 quads Abdomen is tender to palpation in right upper quadrant and right lower quadrant Reports nausea. : No deficits noted. No signs and/or symptoms were reported regarding the genitourinary system. EENT: No deficits noted. No signs and/or symptoms were reported regarding the EENT system. Derm: No deficits noted. No signs and/or symptoms reported regarding the dermatologic system. Skin is intact, is healthy with good turgor, Skin is dry, Skin is normal. Musculoskeletal: No deficits noted. No signs and/or symptoms reported regarding the musculoskeletal system. Circulation, motion, and sensation intact. Range of motion: intact in all extremities. 02:06 Reassessment: Patient appears in no apparent distress at this time. No changes from lg3 previously documented assessment. Patient and/or family updated on plan of care and expected duration. Pain level reassessed. Patient is alert, oriented x 3, equal unlabored respirations, skin warm/dry/pink. Patient states feeling better. 03:24 Reassessment: Patient appears in no apparent distress at this time. No changes from lg3 previously documented assessment. Patient and/or family updated on plan of care and expected duration. Pain level reassessed. Patient is alert, oriented x 3, equal unlabored respirations, skin warm/dry/pink. 05:15 Pain: Complains of pain in posterior aspect of right lateral abdomen Pain radiates to lg3 right lower quadrant and right upper quadrant Pain currently is 8 out of 10 on a pain scale. Vital Signs: 12/09 23:52 BP 147 / 90; Pulse 86; Resp 16; Temp 98.7; Pulse Ox 98% ; Weight 79.38 kg; Height 5 ft. vc1 7 in. (170.18 cm); Pain 9/10; 12/10 02:06 BP 135 / 89; Pulse 76; Resp 17; Pulse Ox 97% on R/A; Pain 3/10; lg3 03:26 BP 139 / 79; Pulse 62; Resp 18 S; Pulse Ox 98% on R/A; lg3 12/09 23:52 Body Mass Index 27.41 (79.38 kg, 170.18 cm) vc1 ED Course: 12/09 23:41 Patient arrived in ED. ja2 23:59 Triage completed. vc1 12/10 00:03 Arm band placed on left wrist. vc1 00:07 Rinku Fonseca MD is Attending Physician. rt 00:55 CBC with Diff Sent. rv1 00:55 CMP Sent. rv1 00:55 Urine Microscopic Only Sent. rv1 00:55 Inserted saline lock: 20 gauge in right antecubital area, using aseptic technique. rv1 Blood collected. 01:08 Patient has correct armband on for positive identification. Placed in gown. Bed in low lg3 position. Call light in reach. Side rails up X 1. Client placed on continuous cardiac and pulse oximetry monitoring. NIBP monitoring applied. campus monitor on. Door closed. Warm blanket given. Family accompanied patient. 02:05 Bonita Cabrales, RN is Primary Nurse. lg3 04:00 SARS RAPID Sent. lg3 05:32 No provider procedures requiring assistance completed. Patient transferred, IV remains lg3 in place. intact, No redness/swelling at site. Administered Medications: 01:06 Drug: morphine 4 mg Route: IVP; Infused Over: 4 mins; Site: right antecubital; lg3 02:05 Follow up: Response: No adverse reaction; Marked relief of symptoms; Pain is decreased lg3 01:06 Drug: Zofran (Ondansetron) 4 mg Route: IVP; Site: right antecubital; lg3 02:05 Follow up: Response: No adverse reaction lg3 02:05 Drug: NS 0.9% 1000 ml Route: IV; Rate: 1 bolus; Site: right antecubital; lg3 04:01 Follow up: Response: No adverse reaction; IV Status: Completed infusion; IV Intake: lg3 1000ml 03:04 Drug: morphine 4 mg Route: IVP; Infused Over: 4 mins; Site: right antecubital; lg3 04:00 Follow up: Response: No adverse reaction; Marked relief of symptoms; Pain is decreased lg3 03:04 Drug: Zofran (Ondansetron) 4 mg Route: IVP; Site: right antecubital; lg3 04:00 Follow up: Response: No adverse reaction; Marked relief of symptoms lg3 05:30 Drug: morphine 4 mg Route: IVP; Infused Over: 4 mins; Site: right antecubital; lg3 05:31 Follow up: Response: No adverse reaction lg3 05:31 Drug: Zofran (Ondansetron) 4 mg Route: IVP; Site: right antecubital; lg3 05:31 Follow up: Response: No adverse reaction lg3 Medication: 05:35 VIS not applicable for this client. lg3 Intake: 04:01 IV: 1000ml; Total: 1000ml. lg3 Outcome: 03:49 ER care complete, transfer ordered by . rt 05:32 Transferred by ground EMS lg3 05:32 Condition: stable 05:32 Instructed on the need for transfer, Demonstrated understanding of instructions. 05:35 Patient left the ED. lg3 Signatures: Bonita Cabrales RN RN lg3 Silvia Madrid Vanessa, RN RN vc1 Rinku Fonseca MD MD rt Aneta Adrian rv1
--- NOTE | 2022-12-10 03:50 | EDPHYS ---
Physician Documentation [facility] Name: Cody Glover Jr Age: 72 yrs Sex: Male : 1950 Arrival Date: 12/09/2022 Time: 23:41 Bed 13 Private MD: ED Physician Rinku Fonseca HPI: 12/10 01:40 This 72 yrs old Male presents to ER via Ambulatory with complaints of Possible Kidney rt Stone. 01:40 Patient presents to the ED with a right-sided flank pain starting today after mowing rt his lawn. The patient states that he did pass a kidney stone about 9 months ago, however, he states that this is different in nature. Of note, patient had repaired abdominal aortic aneurysm, with a revision of this repair about 1 month ago. Patient states that he is concerned that he may have an issue related to the AAA repair. The patient denies hematuria, reports mild nausea but denies other acute complaints at this time. Symptoms are moderate in severity, no other aggravating or alleviating factors.. Historical: - Allergies: 12/09 23:59 No Known Allergies; vc1 - Home Meds: 23:59 ropinirole 2 mg oral tab 1 tab noon and bedtime [Active]; vc1 telmisartan-hydrochlorothiazid 40-12.5 mg oral tab 1 tab once daily [Active]; simvastatin 20 mg Oral tab 1 tab once daily [Active]; trazodone 50 mg Oral tab 1 tab once daily [Active]; pantoprazole 40 mg oral TbEC 1 tab once daily [Active]; sildenafil 100 mg oral tab 1 tab once daily [Active]; - PMHx: 23:59 Hyperlipidemia; Hypertension; Triple A; vc1 - PSHx: 23:59 Triple A repair; vc1 - Immunization history:: Client reports receiving the 2nd dose of the Covid vaccine. - Social history:: Smoking status: Patient denies any tobacco usage or history of. - Family history:: not pertinent. ROS: 12/10 01:40 Constitutional: Negative for fever, chills, and weight loss, Eyes: Negative for injury, rt pain, redness, and discharge, Cardiovascular: Negative for chest pain, palpitations, and edema, Respiratory: Negative for shortness of breath, cough, wheezing, and pleuritic chest pain, MS/Extremity: Negative for injury and deformity, Skin: Negative for injury, rash, and discoloration, Neuro: Negative for headache, weakness, numbness, tingling, and seizure, Psych: Negative for depression, anxiety, suicide ideation, homicidal ideation, and hallucinations. Abdomen/GI: Positive for nausea, Negative for abdominal pain. Back: Positive for pain at rest, flank pain. Exam: 01:40 Constitutional: This is a well developed, well nourished patient who is awake, alert, rt and in no acute distress. Head/Face: Normocephalic, atraumatic. Chest/axilla: Normal chest wall appearance and motion. Nontender with no deformity. No lesions are appreciated. Cardiovascular: Regular rate and rhythm with a normal S1 and S2. No gallops, murmurs, or rubs. Normal PMI, no JVD. No pulse deficits. Respiratory: Lungs have equal breath sounds bilaterally, clear to auscultation and percussion. No rales, rhonchi or wheezes noted. No increased work of breathing, no retractions or nasal flaring. Back: No spinal tenderness. No costovertebral tenderness. Full range of motion. Skin: Warm, dry with normal turgor. Normal color with no rashes, no lesions, and no evidence of cellulitis. MS/ Extremity: Pulses equal, no cyanosis. Neurovascular intact. Full, normal range of motion. Neuro: Awake and alert, GCS 15, oriented to person, place, time, and situation. Cranial nerves II-XII grossly intact. Motor strength 5/5 in all extremities. Sensory grossly intact. Cerebellar exam normal. Normal gait. Psych: Awake, alert, with orientation to person, place and time. Behavior, mood, and affect are within normal limits. 01:40 Abdomen/GI: Very minimal abdominal tenderness diffusely, well-healing midline laparotomy scar present.. Vital Signs: 12/09 23:52 BP 147 / 90; Pulse 86; Resp 16; Temp 98.7; Pulse Ox 98% ; Weight 79.38 kg; Height 5 ft. vc1 7 in. (170.18 cm); Pain 9/10; 12/10 02:06 BP 135 / 89; Pulse 76; Resp 17; Pulse Ox 97% on R/A; Pain 3/10; lg3 03:26 BP 139 / 79; Pulse 62; Resp 18 S; Pulse Ox 98% on R/A; lg3 12/09 23:52 Body Mass Index 27.41 (79.38 kg, 170.18 cm) vc1 MDM: 00:08 Patient medically screened. rt 05:03 Differential diagnosis: nephrolithiasis, pyelonephritis, UTI, pancreatitis, ruptured rt AAA, dissecting AAA. Data reviewed: vital signs, nurses notes, lab test result(s), radiologic studies. Consideration of Admission/Observation We will transfer for urology. Management of patient was discussed with the following: Manager Of Corporate: Accepting physician. I considered the following discharge prescriptions or medication management in the emergency department Medications were administered in the Emergency Department. See MAR. Independent interpretation of the following test(s) in the Emergency Department CT Scan: My interpretation is Ureteral stone visualized on my interpretation of the CT images. Care significantly affected by the following chronic conditions: Repaired abdominal aortic aneurysm. Counseling: I had a detailed discussion with the patient and/or guardian regarding: the historical points, exam findings, and any diagnostic results supporting the discharge/admit diagnosis, lab results, radiology results, the need to transfer to another facility. Response to treatment: the patient's symptoms have markedly improved after treatment. 05:25 ED course: Patient request transfer to [facility].. rt 12/10 00:25 Order name: CT Abdomen - Angio rt 12/10 00:25 Order name: Urine Dipstick-Ancillary (obtain specimen); Complete Time: 00:55 rt 12/10 00:25 Order name: Urine Microscopic Only rt 12/10 00:25 Order name: CBC with Diff rt 12/10 00:25 Order name: CMP rt 12/10 00:50 Order name: Urine Dipstick-Ancillary; Complete Time: 01:34 EDMS 12/10 00:58 Order name: Urine Microscopic Only; Complete Time: 01:34 EDMS 12/10 01:00 Order name: CBC with Automated Diff; Complete Time: 01:34 EDMS 12/10 01:22 Order name: Comprehensive Metabolic Panel; Complete Time: 01:34 EDMS 12/10 03:33 Order name: SARS RAPID rt 12/10 04:28 Order name: SARS-COV-2 Antigen Rapid EDMS Administered Medications: 01:06 Drug: morphine 4 mg Route: IVP; Infused Over: 4 mins; Site: right antecubital; lg3 02:05 Follow up: Response: No adverse reaction; Marked relief of symptoms; Pain is decreased lg3 01:06 Drug: Zofran (Ondansetron) 4 mg Route: IVP; Site: right antecubital; lg3 02:05 Follow up: Response: No adverse reaction lg3 02:05 Drug: NS 0.9% 1000 ml Route: IV; Rate: 1 bolus; Site: right antecubital; lg3 04:01 Follow up: Response: No adverse reaction; IV Status: Completed infusion; IV Intake: lg3 1000ml 03:04 Drug: morphine 4 mg Route: IVP; Infused Over: 4 mins; Site: right antecubital; lg3 04:00 Follow up: Response: No adverse reaction; Marked relief of symptoms; Pain is decreased lg3 03:04 Drug: Zofran (Ondansetron) 4 mg Route: IVP; Site: right antecubital; lg3 04:00 Follow up: Response: No adverse reaction; Marked relief of symptoms lg3 05:30 Drug: morphine 4 mg Route: IVP; Infused Over: 4 mins; Site: right antecubital; lg3 05:31 Follow up: Response: No adverse reaction lg3 05:31 Drug: Zofran (Ondansetron) 4 mg Route: IVP; Site: right antecubital; lg3 05:31 Follow up: Response: No adverse reaction lg3 Disposition Summary: 12/10/22 03:49 Transfer Ordered Transfer Location: Other Acute Care Facility rt Reason: Higher level of care rt Condition: Stable rt Problem: new rt Symptoms: have improved rt Accepting Physician: Dr. Delgado(12/10/22 05:35) lg3 Diagnosis - Calculus of ureter rt Forms: - Medication Reconciliation Form rt - SBAR form rt Signatures: Dispatcher [employer] Bonita Monsalve RN RN lg3 Tammy Richey RN RN vc1 Rinku Fonseca MD MD rt Corrections: (The following items were deleted from the chart) 05:35 03:49 Dr. Delgado rt lg3
[2022-12-10 04:28] LABS: SARS-CoV-2 Antigen Rapid Res Negative (Negative)
[2022-12-10 06:00] VITALS: TEMP 98.7
[2022-12-10 06:03] VITALS: BP 139/79; O2SAT 98
--- NOTE | 2022-12-10 13:52 | RAD REPORT ---
EXAM DESCRIPTION: CT - Abdomen Angio - 12/10/2022 6:19 am CLINICAL HISTORY: Right flank pain, aneurysm COMPARISON: 03/12/2020. 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 This examination was performed according to a CT angiographic (CTA) prot ocol with 3D post-processing. This involves 3D reconstructions, MIPS, volume rendered images and/or s haded surface rendering. FINDINGS: Lower lungs are clear. Abdomen: The liver is normal in appearance. There is no biliary dilatation. Gallbladder is normal in appearance. The pancreas and spleen are normal in appearance. Adrenal glands are normal. Kidneys are moderately atrophic, especially on the right. There is moderate right hydronephrosis with a mid to di stal right ureteral calculus measuring 10 mm. There is a stent within the proximal abdominal aorta, partially covering the SMA and celiac artery or igins as well as the renal artery origins. Distal abdominal aorta appears to have been repaired with an open approach. There is a right patent aortofemoral bypass graft. There are stents within the righ t common iliac and external iliac artery which are occluded. There is no free air. There is no retrop eritoneal adenopathy. Skeleton: There are no acute osseous findings. No suspicious bony lesions. IMPRESSION: Interval open operative repair of distal abdominal aortic aneurysm as described. Obstructing 10 mm mid to distal right ureteral calculus. Electronically signed by: Fabio Beltre MD 12/10/2022 3:12 AM [employer]LE [employer] OPERATOR HELPER Due to temporary technical issues with the PACS/Fluency reporting system, reports are being signed by the in house radiologists without review as a courtesy to insure prompt reporting. The interpreting radiologist is fully responsible for the content of the report
== END 2022-12-10 05:35 ==
LOC: ER 23:40
DX: N20.1 Calculus of ureter (principal); Z20.822 Contact with and (suspected) exposure to COVID-19; I10 Essential (primary) hypertension
CPT/HCPCS: 96361; 85025; 36415; 80053; 74175; 96375; 96374; 99285; 87811; Q9967; J7030 ×2; J2405 ×3; 81003; 81015

== ENCOUNTER 2025-01-09 06:27 | Observation (INO) | payer OTHER ==
[2025-01-07 13:22] LABS: Absolute Eosinophils 0.2 K/uL (0-0.5); Absolute Monocytes 0.4 K/uL (0.1-1.3); Absolute Neutrophil 2.9 K/uL (1.8-8.0); Basophils % 0.6 % (0-1.3); Eosinophils % 3.6 % (0-4.4); Hematocrit 42.1 % (39.6-49.0); Hemoglobin 14.1 g/dL (13.6-17.9); Lymphocytes % 36.3 % (15.3-44.8); MCH 30.8 pg (27.0-35.0); MCHC 33.5 g/dL (32.0-36.0); MCV 91.8 fL (80-100); MPV 8.3 fL (7.6-11.3); Neutrophils % 52.5 % (41.7-73.7); Nucleated Red Blood Cells % 0.1 % (0-0); Platelets 165 thou/uL (152-406); RBC Red Blood Cell Count 4.59 M/uL (4.33-5.43); Red Cell Distribution Width 15.1 % (12.1-15.2)
[2025-01-07 13:34] LABS: Anion Gap 7.2 mEq/L (5.0-15.0); PT Prothrombin Time 10.2 SECONDS (10-13.0); Potassium 4.2 mEq/L (3.5-5.1); Protime INR 0.89
--- NOTE | 2025-01-07 13:42 | RAD REPORT ---
EXAM: Chest Pa And Lat (2 Views) HISTORY: 74 years Male pre op for day surgery COMPARISON: 10/26/2022 FINDINGS: LUNGS/PLEURA: The lungs are clear. No pleural effusions or pneumothorax. No pulmonary edema. CARDIAC/MEDIASTINUM: The cardiac silhouette is within normal limits. UPPER ABDOMEN: No significant abnormality. BONES: No acute abnormality. LINES/TUBES/OTHER: N/A IMPRESSION: No evidence of acute cardiopulmonary disease. No significant change from prior.
[2025-01-09] MEDS ORDERED: LIDOCAINE 1% MPF 5 ML VIAL ONE (06:50)
[2025-01-09] MEDS ORDERED: KETOROLAC 30 MG/ML INJ ONE (06:50)
[2025-01-09] MEDS ORDERED: ROCURONIUM 50 MG/5 ML VIAL IV ONE (06:50)
[2025-01-09] MEDS ORDERED: ONDANSETRON 4 MG/2 ML VIAL ONE (06:50)
[2025-01-09] MEDS ORDERED: propofoL 200 MG/20 ML VIAL IV ONE (06:50)
[2025-01-09] MEDS ORDERED: MIDAZOLAM HCL 2 MG/2 ML INJ ONE (06:51)
[2025-01-09] MEDS ORDERED: FENTANYL CITR 100 MCG/2 ML ONE (06:51)
[2025-01-09] MEDS: Ringers Lactate 1,000 ML IV ONE ×2 (07:20→10:30)
[2025-01-09] MEDS ORDERED: EPINEPHrine 1 MG/10 ML SYR ONE (07:53)
[2025-01-09] MEDS ORDERED: EPHEDRINE SULF 50 MG/ML VIAL ONE (07:54)
[2025-01-09] MEDS: CEFAZOLIN SODIUM 1 GM/VIAL ONE (08:00)
[2025-01-09] MEDS ORDERED: SODIUM CHLORIDE 0.9% 10ML INJ IV PRN (09:35)
[2025-01-09] MEDS ORDERED: ONDANSETRON 4 MG/2 ML VIAL IV PRN (09:35)
[2025-01-09] MEDS: HYDROMORPHONE HCL 1 MG/ML INJ ONE ×2 (10:04→10:30)
[2025-01-09 11:34] VITALS: BMI 29.0
[2025-01-09 11:35] VITALS: O2SAT 98
[2025-01-09] MEDS: NA CHLORIDE 0.9% 1,000 ML IV SCH (12:39)
[2025-01-09] MEDS: CEFOXITIN 1 GM in NA CHLORIDE 0.9% 50 ML IVPB SCH (12:40)
[2025-01-09] MEDS: HYDROMORPHONE HCL 1 MG/ML INJ IV PRN (15:57)
[2025-01-09] MEDS: DOCUSATE NA 100 MG CAP PO SCH (21:32)
[2025-01-10 04:27] LABS: Absolute Eosinophils 0.1 K/uL (0-0.5); Absolute Lymphocytes (CBC) 1.1 K/uL (0.7-4.9); Absolute Monocytes 0.6 K/uL (0.1-1.3); Absolute Neutrophil 5.9 K/uL (1.8-8.0); Basophils % 0.3 % (0-1.3); Eosinophils % 1.8 % (0-4.4); Hematocrit 36.9 % (39.6-49.0); Hemoglobin 12.6 g/dL (13.6-17.9); Lymphocytes % 13.9 % (15.3-44.8); MCH 31.1 pg (27.0-35.0); MCHC 34.1 g/dL (32.0-36.0); MCV 91.1 fL (80-100); MPV 8.6 fL (7.6-11.3); Monocytes % 7.7 % (3.3-12.3); Neutrophils % 76.3 % (41.7-73.7); Nucleated Red Blood Cells % 0.1 % (0-0); Platelets 112 thou/uL (152-406); RBC Red Blood Cell Count 4.06 M/uL (4.33-5.43); Red Cell Distribution Width 15.3 % (12.1-15.2)
[2025-01-10 05:03] LABS: Anion Gap 9.3 mEq/L (5.0-15.0); Potassium 4.3 mEq/L (3.5-5.1)
[2025-01-10] MEDS: PANTOPRAZOLE 40 MG INJ IVP SCH (07:54)
[2025-01-10 08:19] VITALS: BP 124/59; TEMP 98.1
--- NOTE | 2025-01-10 09:22 | P.DS ---
Admission Date: 01/09/25 Discharge Date: 01/10/25 Disposition: ROUTINE DISCHARGE Discharge Condition: GOOD Vital Signs/Physical Exam: Temp Pulse Resp BP Pulse Ox 98.1 F 70 16 124/59 L 92 01/10/25 08:00 01/10/25 08:00 01/10/25 08:00 01/10/25 08:00 01/10/25 08:00 General: Alert, In no apparent distress, Oriented x3, Cooperative HEENT: Atraumatic, Normocephalic, PERRLA Neck: Supple Cardiovascular: No edema, Normal pulses Gastrointestinal: Normal bowel sounds, Soft and benign, No rebound, No guarding Musculoskeletal: No erythema, No warmth Integumentary: No rashes, No breakdown, No erythema, No warmth, No cyanosis Neurological: Normal speech Laboratory Data at Discharge: WBC 7.70 thou/uL (4.3-10.9) 01/10/25 04:17 Hgb 12.6 g/dL (13.6-17.9) L 01/10/25 04:17 Hct 36.9 % (39.6-49.0) L 01/10/25 04:17 Plt Count 112 thou/uL (152-406) L 01/10/25 04:17 PT 10.2 SECONDS (10-13.0) 01/07/25 13:09 INR 0.89 01/07/25 13:09 APTT 31.0 SECONDS (27.2-37.4) 01/07/25 13:09 Sodium 135 mEq/L (136-145) L 01/10/25 04:17 Potassium 4.3 mEq/L (3.5-5.1) 01/10/25 04:17 BUN 18 mg/dL (7-18) 01/10/25 04:17 Creatinine 1.63 mg/dL (0.70-1.30) H 01/10/25 04:17 Glucose 134 mg/dL (74-106) H 01/10/25 04:17 Home Medications: Atorvastatin Calcium 1 tab PO BEDTIME 01/07/25 Famotidine 20 mg PO BEDTIME 01/07/25 Omeprazole [Prilosec] 40 mg PO BID 01/07/25 Potassium Citrate [Urocit-K] 10 meq PO DAILY 03/31/25 Ropinirole HCl 3 mg PO BEDTIME 01/07/25 Ropinirole HCl 4 mg PO NOON 01/07/25 Sildenafil Citrate 100 mg PO SEECOM 01/07/25 Sucralfate [Carafate] 1 gm PO QID 01/07/25 Telmisartan/Hydrochlorothiazid [Micardis Hct 40-12.5 mg Tablet] 1 each PO DAILY 01/07/25 Physician Discharge Instructions: Keep surgical area dry until tomorow then may remove outer dressing and shower. Apply antibiotic ointment to surgical wound daily and and bandaid. Use abdominal binder while out of bed. Diet: AHA Activity: No lifting more than 10 lbs Followup: Reg Kimble [Primary Care Provider] - If your Symptoms Worsen Micky Bae MD [ACTIVE - CAN ADMIT] - 1 Week
[2025-01-10] MEDS: HYDROCODONE/APAP 5/325 MG TAB PO PRN (09:23)
--- NOTE | 2025-01-30 12:43 | P.BOP ---
Preoperative diagnosis: Incarcerated incisional tender ventral hernia Postoperative diagnosis: same, multiple hernias x 4, extensive intrabdominal adhesions Primary procedure: Laparoscopic repair Incarcerated incisional ventral hernias with mesh Estimated blood loss: <20cc Findings: multiple hernias x 4 Anesthesia: General Complications: None Implants: ventralight with ECHO PS 8x6cm Transferred to: Recovery Room Condition: Good
--- NOTE | 2025-01-31 00:28 | OP ---
Surgeon: Micky Bae MD Preoperative Diagnoses: Abdominal pain, incarcerated incisional tender ventral hernias. Postoperative Diagnoses: Abdominal pain, incarcerated incisional tender ventral multiple hernias x4, extensive intraabdominal adhesions. Procedure: Laparoscopic repair of incarcerated incisional ventral hernia with mesh. When we get alt ogether, it is about 4 x 5 cm. Complications: None. Findings: Multiple hernias. Anesthesia: General plus local. Implant: Ventralight with Echo Positioning System 8 x 6 cm. Indications: This is the case of 74-year-old patient with a previous midline incision for multiple s urgeries, found to have a hernia, although the imaging shows that we still believe he may have more t barrera one. The benefits, alternatives, and risks of repair of a ventral hernia of incarcerated incisio nal was fully explained, which include, but not limited to infection, bleeding, damage to adjacent st ructures, anesthesia complication, recurrence, CA, and even . He also understands this may not relieve symptoms. He might need more than one surgical intervention. He understand we may be using mesh in that region. So, pros and cons of mesh were discussed with the patient. All their questions answered to their satisfaction. We also explained to him the importance of losing weight and no hea vy lifting. He signed a consent. Description Of Procedure: The patient was brought to the operating room, placed in supine position. Anesthesia was induced without complication. Abdominal area was prepped and draped in sterile fashi on. Local anesthesia was applied after time-out. An incision was made in the area that we are tryin g to find out if there could be adhesions. He has midline incision in the abdomen, so we expect adhe sions in that area, even possible bowel in there. So, we were able to slowly find this place, opened the fascia, and explored slowly until we can put a 5 mm trocar. With that, the camera helped us to localize where we are going to put the rest of the trocars and as expected, we saw a lot of intraabdo delmy adhesions. We cannot fix these until we remove them since some of the intestines were involved in this and we have to bring this down away from the peritoneal cavity to be able to not only fix th e hernia, but also delineate the size of it. So, with the help of laparoscopy, we identified another place where we can put a 5 mm trocar. This allowed me to introduce a ligature and I started to do l ysis of adhesions that took probably half the time of the entire surgery. Once we had the adhesions done with no enterotomies and no bleeding, we were able to see that the hernia is really 4 hernias. So, because the fascia is so friable, I did an assisted procedure, so I made an incision on the skin area and then converted these 4 hernias into 1 large one and then I oversewed that area with Prolene. We then tied the Prolene all the way until we have the mesh inside. We selected a Ventralight 8 x 6 cm, so we overlapped the area by at least 3-5 cm. One defect is closed. Once we put the mesh insi de, we tied the stitches and made this waterproof. Inflated the balloon, put the mesh against the an terior abdominal wall laparoscopically under direct visualization and secured that in place with Sorb aFix. We removed the balloon to one of the trocar sites and then further fixated the mesh circumfere ntially to diminish the chance of any intestines coming in between. The fascia was pretty close, loo ks to be airtight. We took the area of the lysis of adhesions, looked intact with no bleeding and in testines with no enterotomies. At that moment, I proceeded then to remove the trocars under direct v ision, deflate pneumoperitoneum, close the subcutaneous tissue with 3-0 chromic, and skin with staple s. Sponge count and instrument counts were correct. The patient tolerated the procedure well. The patient was sent to recovery in stable condition. We expect this patient to develop an ileus and abd ominal pain, so we are going to keep him in observation because with lot of adhesions and also the amount of hernias present, he agre ed. EMMETT/NEENA Voice ID: [id number] Report ID: [id number]
== END 2025-01-10 10:06 | disposition home or self-care (01) ==
LOC: OR 06:27 → 2ND 09:35
PROVIDERS: ADMIT Surgery; ATTEND Surgery
PROC: 0DNW4ZZ Release Peritoneum, Percutaneous Endoscopic Approach (ICD-10-PCS; 2025-01-09)
PROC: 0WUF4JZ Supplement Abdominal Wall with Synthetic Substitute, Percutaneous Endoscopic Approach (ICD-10-PCS; principal; 2025-01-09 07:30)
DX: K43.0 Incisional hernia with obstruction, without gangrene (principal); R10.9 Unspecified abdominal pain; K66.0 Peritoneal adhesions (postprocedural) (postinfection)
CPT/HCPCS: 36415; 71046; 80048; 85025; 85610; 85730; 88302; 94010; G0378; G0379; J0171; J0690; J0694; J1171; J2003; J2250; J2405; J2470; J2704; J3010; J7030; J7120